=== PATIENT | male | born 1940 | race Caucasian/White ===

== ENCOUNTER 2017-12-22 19:06 | Inpatient (IN) | payer MEDICARE, MEDICAID ==
[~2017-12-22] VITALS: Ht 165.1 cm; Wt 48.1 kg
[~2017-12-22 19:06] MED LIST: GLV55; LYRICA
[2017-12-22] MEDS ORDERED: ONDANSETRON HCL 4MG/2ML INJ IV STA (22:47)
[2017-12-22] MEDS ORDERED: SODIUM CHLORIDE 0.9% 1,000 ML IV ONE (22:47)
[2017-12-22] MEDS ORDERED: MORPHINE SULFATE 4 MG/ML CPJ (NOT FOR IM USE) IV STA (22:47)
[2017-12-22 23:52] LABS: HEMATOCRIT. 34.6 % (42.0-52.0); HEMOGLOBIN. 11.9 g/dL (14.0-18.0); MEAN CORPUSCULAR HEMOGLOBIN 32.7 pg (28.0-32.0); MEAN CORPUSCULAR VOLUME 95.2 fL (80.0-94.0); MEAN PLATELET VOLUME 7.5 fl (7.4-10.4); PLATELET 306 x1000/uL (130-400); RED BLOOD CELL COUNT 3.64 mill/uL (4.7-6.1); RED CELL DISTRIBUTION WIDTH 16.6 % (11.6-14.6)
[2017-12-22 23:53] LABS: CHLORIDE 93 mEq/L (98-107); INR 1.6; PARTIAL THROMBOPLASTIN TIME 41.7 sec (23.4-31.0); PROTHROMBIN TIME 15.7 sec (9.1-11.1)
[2017-12-23] VITALS (8 sets, daily range): BP systolic 115–145; BP diastolic 56–88
[2017-12-23 00:01] LABS: ETHANOL BLOOD < 10 mg/dL
[2017-12-23 00:48] LABS: ATYPICAL LYMPHOCYTES 1; PLATELET ESTIMATE NORMAL
[2017-12-23] MEDS ORDERED: SODIUM CHLORIDE 0.9% 1,000 ML IV SCH (00:57)
[2017-12-23] MEDS ORDERED: LORAZEPAM 2MG/ML CPJ IV PRN (01:00)
[2017-12-23] MEDS ORDERED: DIPHENHYDRAMINE 50MG/ML VIAL IV PRN (01:00)
[2017-12-23] MEDS ORDERED: GUAIFENESIN 200MG/10ML SUGAR FREE UDC PO PRN (01:00)
[2017-12-23] MEDS ORDERED: NA PHOS,M-B/NA PHOS,DI-BA ENEMA 118ML PR PRN (01:00)
[2017-12-23] MEDS ORDERED: IPRATROPIUM/ALBUTEROL 0.5-3(2.5)MG/3ML NEB INH PRN (01:00)
[2017-12-23] MEDS ORDERED: CLONIDINE 0.1MG TABLET PO PRN (01:00)
[2017-12-23] MEDS ORDERED: ONDANSETRON HCL 4MG/2ML INJ IV PRN (01:00)
[2017-12-23] MEDS ORDERED: MORPHINE SULFATE 4 MG/ML CPJ (NOT FOR IM USE) IV PRN (01:00)
[2017-12-23] MEDS ORDERED: ACETAMINOPHEN 325MG TABLET PO PRN (01:00)
[2017-12-23] MEDS ORDERED: DOCUSATE SODIUM 100MG CAPSULE PO PRN (01:00)
[2017-12-23] MEDS ORDERED: HYDROCODONE/ACETAMINOPHEN 5/325MG TABLET PO PRN (01:00)
[2017-12-23] MEDS ORDERED: PIPERACILLIN/TAZ 3.375G PREMIX 50 ML IV ONE (01:15)
[2017-12-23] MEDS ORDERED: DEXTROSE 50% WATER 50ML SYRINGE IV PRN (01:15)
[2017-12-23 01:22] LABS: CLARITY URINE CLEAR (CLEAR); COLOR URINE DARK YELLOW (YELLOW); KETONES URINE NEGATIVE (NEGATIVE); LEUKOCYTE ESTERASE URINE NEGATIVE (NEGATIVE); NITRITE URINE NEGATIVE (NEGATIVE); OCCULT BLOOD URINE NEGATIVE (NEGATIVE); PROTEIN URINE NEGATIVE (NEGATIVE); UROBILINOGEN URINE 0.2 E.U./dL (0.2-1.0)
[2017-12-23 04:06] LABS: HEPATITIS B CORE AB IGM NEGATIVE
[2017-12-23] MEDS ORDERED: DIPHENHYDRAMINE 25MG CAPSULE PO PRN (04:30)
[2017-12-23] MEDS ORDERED: METF-414 PO (05:42)
[2017-12-23] MEDS ORDERED: LEVO50TA8 PO (05:42)
[2017-12-23] MEDS ORDERED: OXYB5TAB11 PO (05:42)
[2017-12-23] MEDS ORDERED: TAMS0.4C31 PO (05:42)
[2017-12-23] MEDS ORDERED: PRAV40TA58 PO (05:46)
[2017-12-23] MEDS ORDERED: CHOL200010 PO (05:46)
[2017-12-23] MEDS ORDERED: OMEG-80 PO (05:46)
[2017-12-23] MEDS ORDERED: GLIP5TAB12 PO (05:46)
[2017-12-23] MEDS ORDERED: AMLO10TA80 PO (05:46)
[2017-12-23] MEDS: PIPERACILLIN/TAZ 3.375G PREMIX 50 ML IV SCH ×3 (06:00→21:36)
[2017-12-23] MEDS ORDERED: PIPERACILLIN/TAZ 3.375G PREMIX 50 ML IV SCH (06:00)
[2017-12-23] MEDS: INSULIN LISPRO 100 UNITS/ML SUBCUT SCH ×4 (06:00→23:22)
[2017-12-23] MEDS: BLOOD SUGAR DIAGNOSTIC STRIP TEST SCH ×4 (06:50→23:22)
[2017-12-23] MEDS: DEXT 5%/0.45% NACL 1000ML 1,000 ML IV SCH ×2 (07:00→16:18)
[2017-12-23] MEDS ORDERED: INSULIN LISPRO 100 UNITS/ML SUBCUT SCH (08:20)
[2017-12-23] MEDS ORDERED: INFLUENZA VIRUS VACCINE(AFLURIA) 0.5ML SYR IM ONE (09:00)
[2017-12-23] MEDS ORDERED: PNEUMOCOCCAL 23-VAL P-SAC VAC 0.5 ML IM ONE (09:00)
[2017-12-23 10:22] LABS: HEPATITIS B SURFACE ANTIGEN NEGATIVE
[2017-12-23 10:52] LABS: HEPATITIS A AB IGM NEGATIVE (NEGATIVE)
[2017-12-23 11:54] LABS: CREATINE KINASE 45 IU/L (39-308); CREATINE KINASE MB FRACTION 2.7 ng/mL (0.5-3.6)
[2017-12-23] MEDS: ASPIRIN 81MG EC TABLET PO SCH (12:42)
[2017-12-23] MEDS: ENOXAPARIN 40MG/0.4ML SYR SUBCUT SCH (16:17)
[2017-12-23 17:21] LABS: CREATINE KINASE 40 IU/L (39-308); CREATINE KINASE MB FRACTION 2.3 ng/mL (0.5-3.6)
[2017-12-23] MEDS: MAGNESIUM/ALUMINUM HYDROXIDE/SIMETHICONE 30ML UDC PO PRN (23:28)
[2017-12-24] MEDS: DEXT 5%/0.45% NACL 1000ML 1,000 ML IV SCH ×3 (01:46→22:04)
[2017-12-24 04:20] VITALS: BP 148/61
[2017-12-24] MEDS: PIPERACILLIN/TAZ 3.375G PREMIX 50 ML IV SCH ×3 (05:04→22:02)
[2017-12-24] MEDS: INSULIN LISPRO 100 UNITS/ML SUBCUT SCH ×3 (06:00→18:00)
[2017-12-24] MEDS: BLOOD SUGAR DIAGNOSTIC STRIP TEST SCH ×3 (06:08→18:32)
[2017-12-24 07:28] LABS: HEMATOCRIT. 35.1 % (42.0-52.0); HEMOGLOBIN. 12.4 g/dL (14.0-18.0); MEAN CORPUSCULAR HEMOGLOBIN 33.8 pg (28.0-32.0); MEAN CORPUSCULAR VOLUME 95.3 fL (80.0-94.0); MEAN PLATELET VOLUME 8.1 fl (7.4-10.4); PLATELET 312 x1000/uL (130-400); RED BLOOD CELL COUNT 3.69 mill/uL (4.7-6.1); RED CELL DISTRIBUTION WIDTH 15.4 % (11.6-14.6)
[2017-12-24 08:00] VITALS: BP 120/69
[2017-12-24 08:06] LABS: CHLORIDE 93 mEq/L (98-107)
[2017-12-24 08:19] LABS: HDL CHOLESTEROL 9 mg/dL (40-59); LDL CHOLESTEROL 500 mg/dL (5-100)
[2017-12-24] MEDS: ENOXAPARIN 40MG/0.4ML SYR SUBCUT SCH (08:59)
[2017-12-24] MEDS: ASPIRIN 81MG EC TABLET PO SCH (08:59)
[2017-12-24 10:33] LABS: PLATELET ESTIMATE NORMAL
[2017-12-24 12:00] VITALS: BP 154/71
[2017-12-24 16:48] VITALS: BP 140/69
[2017-12-24 20:00] VITALS: BP 143/69
[2017-12-25] VITALS: BP 114/64
[2017-12-25 04:00] VITALS: BP 134/59
[2017-12-25] MEDS: PIPERACILLIN/TAZ 3.375G PREMIX 50 ML IV SCH ×3 (05:16→21:21)
[2017-12-25] MEDS: INSULIN LISPRO 100 UNITS/ML SUBCUT SCH ×4 (05:34→18:00)
[2017-12-25] MEDS: BLOOD SUGAR DIAGNOSTIC STRIP TEST SCH ×4 (05:34→17:56)
[2017-12-25 07:17] LABS: HEMATOCRIT. 33.9 % (42.0-52.0); HEMOGLOBIN. 11.8 g/dL (14.0-18.0); MEAN CORPUSCULAR HEMOGLOBIN 32.9 pg (28.0-32.0); MEAN CORPUSCULAR VOLUME 94.5 fL (80.0-94.0); MEAN PLATELET VOLUME 7.8 fl (7.4-10.4); PLATELET 278 x1000/uL (130-400); RED BLOOD CELL COUNT 3.59 mill/uL (4.7-6.1); RED CELL DISTRIBUTION WIDTH 16.1 % (11.6-14.6)
[2017-12-25 08:00] VITALS: BP 139/67
[2017-12-25] MEDS: DEXT 5%/0.45% NACL 1000ML 1,000 ML IV SCH ×2 (08:56→09:40)
[2017-12-25] MEDS: ENOXAPARIN 40MG/0.4ML SYR SUBCUT SCH (09:42)
[2017-12-25] MEDS: ASPIRIN 81MG EC TABLET PO SCH (09:50)
[2017-12-25 09:51] LABS: CHLORIDE 94 mEq/L (98-107)
[2017-12-25 11:19] LABS: PLATELET ESTIMATE NORMAL
[2017-12-25 12:00] VITALS: BP 138/85
[2017-12-25 16:00] VITALS: BP 130/80
[2017-12-25 16:09] LABS: INR 1.3; PARTIAL THROMBOPLASTIN TIME 47.6 sec (23.4-31.0); PROTHROMBIN TIME 13.3 sec (9.1-11.1)
[2017-12-25 20:00] VITALS: BP 124/74
[2017-12-26] VITALS: BP 118/80
[2017-12-26] MEDS: BLOOD SUGAR DIAGNOSTIC STRIP TEST SCH ×2 (00:14→05:56)
[2017-12-26] MEDS: MAGNESIUM/ALUMINUM HYDROXIDE/SIMETHICONE 30ML UDC PO PRN (00:17)
[2017-12-26 04:00] VITALS: BP 106/72
[2017-12-26] MEDS: DEXT 5%/0.45% NACL 1000ML 1,000 ML IV SCH (04:53)
[2017-12-26] MEDS: PIPERACILLIN/TAZ 3.375G PREMIX 50 ML IV SCH (05:11)
[2017-12-26] MEDS: INSULIN LISPRO 100 UNITS/ML SUBCUT SCH ×2 (05:57)
[2017-12-26 06:30] LABS: HEMATOCRIT. 34.7 % (42.0-52.0); HEMOGLOBIN. 12.4 g/dL (14.0-18.0); MEAN CORPUSCULAR HEMOGLOBIN 33.8 pg (28.0-32.0); MEAN CORPUSCULAR VOLUME 94.5 fL (80.0-94.0); MEAN PLATELET VOLUME 7.7 fl (7.4-10.4); PLATELET 349 x1000/uL (130-400); RED BLOOD CELL COUNT 3.68 mill/uL (4.7-6.1); RED CELL DISTRIBUTION WIDTH 15.5 % (11.6-14.6)
[2017-12-26 08:00] VITALS: BP 157/74
[2017-12-26 09:00] VITALS: BP 157/74
[2017-12-26] MEDS: ASPIRIN 81MG EC TABLET PO SCH (09:00)
[2017-12-26] MEDS: ENOXAPARIN 40MG/0.4ML SYR SUBCUT SCH (09:00)
[2017-12-26 09:01] LABS: CHLORIDE 93 mEq/L (98-107)
[2017-12-26 12:56] LABS: PLATELET ESTIMATE NORMAL
== END 2017-12-26 11:10 | disposition home or self-care (01) ==
LOC: ER 19:06 → 8WST 12-23 00:35 → ENRESERV 12-23 02:11
PROVIDERS: ADMIT Internal Medicine; ATTEND Internal Medicine
DX: K80.10 Calculus of gallbladder with chronic cholecystitis without obstruction (principal); E43 Unspecified severe protein-calorie malnutrition; K86.89 Other specified diseases of pancreas; D53.9 Nutritional anemia, unspecified; E87.1 Hypo-osmolality and hyponatremia; K83.8 Other specified diseases of biliary tract; E11.9 Type 2 diabetes mellitus without complications; E78.00 Pure hypercholesterolemia, unspecified; E78.5 Hyperlipidemia, unspecified; K82.8 Other specified diseases of gallbladder; F17.210 Nicotine dependence, cigarettes, uncomplicated; I10 Essential (primary) hypertension; K40.90 Unilateral inguinal hernia, without obstruction or gangrene, not specified as recurrent; R19.7 Diarrhea, unspecified; K70.30 Alcoholic cirrhosis of liver without ascites; Z79.899 Other long term (current) drug therapy
CPT/HCPCS: 36415; 71045; 74176; 74181; 76705; 80048; 80061; 80076; 82105; 82248; 82378; 82550; 82553; 82962; 83880; 84484; 86301; 86705; 86709; 86803; 87340; 90686; 90732; 93005; 96361; 96374; 96375; 99285; C1893; G0482; J1650; J1815; J2270; J2405; J2543; J7030